=== PATIENT | female | born 1940 | race Caucasian/White ===

== ENCOUNTER 2017-04-26 12:33 | Emergency (ER) | payer MEDICARE, OTHER ==
[2017-04-26 12:42] VITALS: BP 142/63; PULSE 71; RESP 16; TEMP 98.8; O2SAT 98
--- NOTE | 2017-04-26 12:56 | PD ---
Physical Exam Time Seen by Provider: 12:55 Narrative 76 y/o female here after a trip/fall with L eyebrow laceration. Denies other injuries. Vital signs reviewed. Seen at triage desk. Awaiting bed placement. Data Data Last Documented VS Vital Signs Date Time Temp Pulse Resp B/P Pulse Ox O2 Delivery O2 Flow Rate FiO2 04/26/17 12:42 98.8 71 16 142/63 98 Room Air [facility] Medical Record Reviewed: Yes Supervised Visit with MELIZA: Cyrus Merino Apr 26, 2017 12:56
--- NOTE | 2017-04-26 14:50 | PD ---
HPI Chief Complaint: Fall Time Seen by Provider: 14:50 Travel History International Travel<30 days: No Contact w/Intl Traveler<30days: No Traveled to known affect area: No History of Present Illness HPI 76-year-old female with a history of hypertension, hyperlipidemia, diabetes, CAD is brought to the emergency room by EMS for evaluation of trip and fall with head injury just prior to arrival. The patient states that she was walking on the sidewalk and misstepped causing her to fall hitting her left forehead sustaining a laceration secondary to her glasses frame cutting her. Denies loss of consciousness. States that she did catch her self with her hands and then bumped her head on the ground. She denies any complaints of pain. Denies any headache, dizziness, nausea, vomiting, vision changes, neck pain, back pain, numbness or tingling, weakness. Denies anticoagulation. Tetanus vaccination is up-to-date. No other complaints. PFSH Past Medical History Atrial Fibrillation: Yes Cardiac Catheterization: Yes Cardiovascular Problems: Yes High Cholesterol: Yes Coronary Artery Disease: Yes Diabetes: Yes Patient Takes Glucophage: Yes GERD: Yes Hypertension: Yes Thyroid Disease: Yes Tetanus Vaccination: < 5 Years Influenza Vaccination: Yes ?: Not Menopausal: Yes Dilation and Curettage (D&C): Yes (1958) Past Surgical History Cardiac Surgery: Yes (L CAROTID MESH, ANGIOPLASTY) Cholecystectomy: Yes Joint Replacement: Yes (R KNEE) Social History Alcohol Use: No Tobacco Use: No Substance Use: No Allergies-Medications (Allergen,Severity, Reaction): Coded Allergies: Apraclonidine (Verified Allergy, Unknown, 04/26/17) Codeine (Verified Allergy, Unknown, 04/26/17) Reported Meds & Prescriptions Reported Meds & Active Scripts Active Reported Multi Vitamin and Mineral (Multiple Vitamins W/ Minerals) 1 Tab Tab Vitamin B12 (Cyanocobalamin) 500 Mcg Tab 1,000 Mcg PO DAILY Vitamin D3 (Cholecalciferol) 1,000 Unit Tab 1,000 Units PO DAILY Calcium (Calcium Carbonate-Cholecalciferol) 1,250-100 Mg-Unit Chew 1 Tab CHEW Omeprazole 40 Mg Cap 40 Mg PO DAILY Levothyroxine (Levothyroxine Sodium) 50 Mcg Tab 50 Mcg PO DAILY Rosuvastatin (Rosuvastatin Calcium) 20 Mg Tab 20 Mg PO DAILY Crestor (Rosuvastatin Calcium) 20 Mg Tab 20 Mg PO DAILY Aspirin 81 (Aspirin) 81 Mg Tabdr 81 Mg PO DAILY Isosorbide Mononitrate ER (Isosorbide Mononitrate) 30 Mg Jennie 30 Mg PO DAILY Amlodipine (Amlodipine Besylate) 5 Mg Tab 5 Mg PO DAILY Coreg Cr 24 HR (Carvedilol) 20 Mg Cap 20 Mg PO HS Ramipril 10 Mg Cap 10 Mg PO DAILY Januvia (Sitagliptin Phosphate) 100 Mg Tab 100 Mg PO DAILY Metformin (Metformin HCl) 1,000 Mg Tab 1,000 Mg PO BIDPC With meals Review of Systems Except as stated in HPI: all other systems reviewed are Neg Physical Exam Narrative GENERAL: Well-nourished and well-developed pleasant patient in no acute distress who is nontoxic appearing. SKIN: Warm and dry. 2 cm laceration above left eyebrow. HEAD: Normocephalic and atraumatic. No bony point tenderness or crepitus noted throughout the sinuses. EYES: No injection, drainage, or hyphema noted. PERRLA. EOMI. ENT: No nasal drainage noted. Oropharynx is clear and the TMs are normal with good landmarks. NECK: Supple and the trachea is midline. No midline cervical spine tenderness to palpation. Full range of motion. CARDIOVASCULAR: Regular rate and rhythm. RESPIRATORY: Breath sounds are equal bilaterally with no accessory muscle use, wheezing, rhonchi, or crackles. GASTROINTESTINAL: Abdomen is soft, non-tender, and nondistended. MUSCULOSKELETAL: No obvious deformities, swelling, cyanosis, or ecchymosis is present throughout the upper and lower extremities. Patient has full range of motion without any signs of neurovascular compromise. Strength 5/5 upper and lower extremities equal bilaterally. NEUROLOGICAL: Awake, alert, and oriented. Normal speech and gait. Cranial nerves are grossly intact. Data Data Last Documented VS Vital Signs Date Time Temp Pulse Resp B/P Pulse Ox O2 Delivery O2 Flow Rate FiO2 04/26/17 14:38 70 18 98 Room Air 04/26/17 12:42 98.8 142/[address] Brain W/O Iv Contrast(Rout) (04/26/17 14:49) Lidocai-Epi 1%-1:100,000 Inj (Xylocaine- (04/26/17 15:00) MDM Medical Decision Making Medical Screen Exam Complete: Yes Emergency Medical Condition: Yes Differential Diagnosis Laceration versus superficial versus deep versus intracranial hemorrhage unlikely Narrative Course 76-year-old female was brought to the emergency department status post mechanical trip and fall hitting the left forehead and sustaining a laceration. No loss of consciousness. No focal neurologic deficits. Vital signs are stable. Head CT has been ordered and is pending. Laceration repair is performed, see procedure narrative. Head CT is negative for any acute abnormalities. Discussed proper wound care techniques with the patient. Advised outpatient follow-up with her primary care. Patient verbalizes understanding and agreement with treatment plan. Procedures Procedure Narrative LACERATION LOCATION: Left forehead LENGTH: 2 cm NUMBER OF STITCHES/BRITTNEY: 7 sutures REPAIR: The area of the laceration was prepped with Betadine and sterilely draped. The laceration was infiltrated with 1% lidocaine with epinephrine. The wound was copiously irrigated and explored without evidence of foreign body , tendon injury or neurovascular injury. The wound was closed using 5. 0 Ethilon. This was a single layer repair. Antibiotic ointment and a sterile dressing was applied. The patient was advised to keep the dressing clean and dry. Patient tolerated the procedure well. Diagnosis Primary Impression: Forehead laceration Qualified Code: S01.81XA - Forehead laceration, initial encounter Additional Impression: [facility], initial encounter Referrals: Primary Care Physician Patient Instructions: General Instructions, Laceration (ED) Additional Instructions: Wash wound gently with soap and water. Have sutures removed in 5-7 days. Follow-up with your Primary Care Physician. Return to the ED for any acute worsening of symptoms. Med/Other Pt SpecificInfo: No Change to Meds Disposition: 01 DISCHARGE HOME Condition: Stable Amanda Gil Apr 26, 2017 14:50
[2017-04-26] MEDS ORDERED: LIDOCAINE 1%/EPINEPHrine 1:100,000 SOLN 20 ML VIAL INFIL ONE (15:00)
[2017-04-26] MEDS ORDERED: VITA100064 PO (15:13)
[2017-04-26] MEDS ORDERED: ROSU1TAB8 PO (15:13)
[2017-04-26] MEDS ORDERED: CARV20 PO (15:13)
[2017-04-26] MEDS ORDERED: AMLO5TAB2 PO (15:13)
[2017-04-26] MEDS ORDERED: SITA1TAB2 PO (15:13)
[2017-04-26] MEDS ORDERED: OMEP40CA2 PO (15:13)
[2017-04-26] MEDS ORDERED: MULT-142 (15:13)
[2017-04-26] MEDS ORDERED: RAMI10CA PO (15:13)
[2017-04-26] MEDS ORDERED: METF1000 PO (15:13)
[2017-04-26] MEDS ORDERED: VITA500T49 PO (15:13)
[2017-04-26] MEDS ORDERED: CALC500C2 CHEW (15:13)
[2017-04-26] MEDS ORDERED: ASPI-110 PO (15:13)
[2017-04-26] MEDS ORDERED: LEVO50TA4 PO (15:13)
[2017-04-26] MEDS ORDERED: ROSU20 PO (15:13)
[2017-04-26] MEDS ORDERED: ISOS30TA3 PO (15:13)
--- NOTE | 2017-04-26 16:31 | RADRPT ---
EXAM DATE/TIME: 04/26/2017 15:52 [facility] COMPARISON: No previous studies available for comparison. INDICATIONS : Trauma; fall. RADIATION DOSE: 31.13 CTDIvol (mGy) MEDICAL HISTORY : Hypertension. Cardiovascular disease SURGICAL HISTORY : Cholecystectomy. ENCOUNTER: Initial ACUITY: 1 day PAIN SCALE: 5/10 LOCATION: Bilateral cranial TECHNIQUE: Multiple contiguous axial images were obtained of the head. Using automated exposure control and adjustment of the mA and/or kV according to patient size, radiation dose was kept as low as reasonably achievable to obtain optimal diagnostic quality images. DICOM format image data is av ailable electronically for review and comparison. FINDINGS: There is no evidence for intracranial hemorrhage, mass effect, mass lesions, edema, or extra-axial fl uid collections. The visualized bony structures appear intact. The ventricles are normal size for t he patient's age. There are no signs of acute infarction for technique. Almost 1 cm lucency is prese nt in the left occipital bone may be a venous bailey. CONCLUSION: Unremarkable study. Jaden Mendez MD on April 26, 2017 at 16:28 Board Certified Radiologist. This report was verified electronically.
[2017-04-26 17:00] VITALS: BP 139/65; PULSE 74; RESP 18; O2SAT 99
== END 2017-04-26 17:12 | disposition home or self-care (01) ==
LOC: NEPD 12:33
DX: S01.112A Laceration without foreign body of left eyelid and periocular area, initial encounter (principal); I10 Essential (primary) hypertension; E78.5 Hyperlipidemia, unspecified; E11.9 Type 2 diabetes mellitus without complications; I25.10 Atherosclerotic heart disease of native coronary artery without angina pectoris; I48.91 Unspecified atrial fibrillation; E78.00 Pure hypercholesterolemia, unspecified; K21.9 Gastro-esophageal reflux disease without esophagitis; W01.0XXA Fall on same level from slipping, tripping and stumbling without subsequent striking against object, initial encounter
CPT/HCPCS: 12011; 70450